=== PATIENT | male | born 1960 | race Caucasian/White ===

== ENCOUNTER 2020-08-15 22:40 | Emergency (ER) | payer BC, OTHER ==
[2020-08-15 22:54] VITALS: BP 124/93; PULSE 102; TEMP 98.5; BMI 27.1
[2020-08-15] MEDS ORDERED: dilTIAZem HCL 60 MG TABLET PO ONE (23:00)
[2020-08-15 23:27] LABS: BASO % 1.1 % (0-2.0); EOS % 1.8 % (0-4.5); HEMATOCRIT 42.7 % (35.4-49); HEMOGLOBIN 15.1 GM/dl (11.7-16.9); LYMPH % 29.2 % (8-40); MCH 33.4 pg (25.7-33.7); MCHC 35.4 g/dl (32.0-35.9); MEAN CELL VOLUME 94.5 fl (80-96); MEAN PLT VOLUME 9.2 fl (7.5-11.1); MONO % 8.9 % (3.8-10.2); PLATELET COUNT 179 10^3/uL (134-434); RBC 4.52 M/mm3 (4.00-5.60); RDW 12.3 % (11.9-15.9); WHITE BLOOD COUNT 4.8 K/mm3 (4.0-10.8)
[2020-08-15 23:40] LABS: ALBUMIN 3.9 g/dl (3.4-5.0); ALK PHOS 79 U/L (45-117); ANION GAP 10 MMOL/L (8-16); BILIRUBIN,TOTAL 0.6 mg/dl (0.2-1); CALCIUM 8.5 mg/dl (8.5-10); CHLORIDE 105 mmol/L (98-107); CO2 25 mmol/L (21-32); GLUCOSE,RANDOM 109 mg/dl (74-106); MAGNESIUM 2.3 mg/dL (1.8-2.4); SGOT/AST 23 U/L (15-37); SGPT/ALT 32 U/L (13-61); SODIUM 140 mmol/L (136-145); TOT PROT 6.2 g/dl (6.4-8.2)
== END 2020-08-16 00:52 | disposition home or self-care (01) ==
LOC: SUPCPDRO 22:40 → FER 22:40
DX: R00.2 Palpitations (principal)
CPT/HCPCS: 36415; 80053; 82550; 82553; 83735; 84484; 85025; 93005; 99284-25